=== PATIENT | male | born 1990 | race Caucasian/White ===

== ENCOUNTER 2016-08-16 17:38 | Inpatient (IN) | payer BC, OTHER ==
[~2016-08-16] VITALS: Ht 182.9 cm; Wt 71.7 kg
[~2016-08-16 17:38] MED LIST: DIPH50CA37 PO; GUAI1TBM14 PO; Gabapentin PO; HYDR-3895 PO; Ibuprofen PO; METH-33 PO; MINO100T PO; NICO1PAT11 TD
--- NOTE | 2016-08-17 18:46 | NUR ---
Intake Assessment; Patient is a 26 year old male, presented to [facility] to detoxify from Heroin, Methamphetamine and Xanax. Patient appears mildly intoxicated, patient admitted that he took substances prior to admission. Admitting vital signs are as follows; BP 111/67, HR 76, temperature 97.7, respirations of 18, Spo2 of 100% on room air denies pain at this time. Patient is awake, alert, oriented to name, place, time and situation, face appears flushed, patient is cooperative. Patient did not bring any home medications. Educated patient regarding unit protocols and policies, patient verbalized understanding. Patient to be evaluated by MD. Endorsement to be given to night nurse.
[2016-08-17] MEDS ORDERED: IBUPROFEN 400 MG TABLET PO PRN (19:45)
[2016-08-17] MEDS ORDERED: BUPRENORPHINE HCL 2 MG TAB.SUBL SL PRN (19:45)
[2016-08-17] MEDS ORDERED: ONDANSETRON 4 MG/2 ML VIAL IM PRN (19:45)
[2016-08-17] MEDS ORDERED: CLONIDINE HCL 0.1 MG TABLET PO PRN (19:45)
[2016-08-17] MEDS ORDERED: ONDANSETRON ODT 4 MG TAB.RAPDIS SL PRN (19:45)
[2016-08-17] MEDS ORDERED: MAG HYDROX/AL HYDROX/SIMETH 30 ML LIQUID UDC PO PRN (19:45)
[2016-08-17] MEDS ORDERED: LORAZEPAM 2 MG/1 ML VIAL IM PRN (19:45)
[2016-08-17] MEDS ORDERED: diphenhydrAMINE 50 MG CAPSULE PO PRN (19:45)
[2016-08-17] MEDS ORDERED: DIAZEPAM 10 MG TABLET PO PRN ×2 (19:45)
[2016-08-17] MEDS ORDERED: MIRALAX 17 GM POWD.PACK PO PRN (19:45)
[2016-08-17] MEDS ORDERED: LOPERAMIDE HCL 2 MG CAPSULE PO PRN ×2 (19:45)
[2016-08-17] MEDS ORDERED: ACETAMINOPHEN 325 MG TABLET PO PRN (19:45)
[2016-08-17] MEDS ORDERED: DIAZEPAM 5 MG TABLET PO PRN (19:45)
[2016-08-17] MEDS ORDERED: MAGNESIUM HYDROXIDE 30 ML LIQUID UDC PO PRN (19:45)
[2016-08-17 20:00] VITALS: BP 112/65
--- NOTE | 2016-08-17 20:00 | NUR ---
ADMISSION NOTE : Pt is 26 year old male, admitted to [facility] 0n 08/17/2016 at 1845 for medically supervised withdrawal from Heroine, Meth and Benzodiazepines. Body search and skin check done , skin intact. Pt ambulatory with steady gait, A/O x4. Pt is primary source of information. Pt reports allergy to PCN, allergic reaction unknown (was told by parents about PCN allergy), wishes to be full code, on regular diet. Primary Care Provider is Dr. Duncan from [place]. Last hospitalization 2 years ago for broken tibia. The patient denies a history of withdrawal-induced seizures. Upon admission SC=873/67, HR=76, Temp=97.7 , RR=16, LuZ2=724%, Height=60, Weight= 158lbs. At the time of admission patient denies pain or any discomfort, he used Heroin, Xanax and Meth 6 hours ago. Pt denies SI/HI, cooperative. Pt reports minimal anxiety, educated on relaxation techniques and oriented to unit. COWS=2, CIWA=2. Pt denies pain or body aches. Skin intact, warm, color consistent, intact. Pupils PERRLA, 3 mm bilat. Lung sounds clear, pt denies cough or SOB. Heart rate regular, pt denies chest pain, no murmurs noted. No edema noted. Cap refill <3 sec. Bowel sounds active x 4, abdomen soft, non tender, pt denies n/v, last BM 08/17/16. Pt denies problems with urination, provided urine sample for drug screen. Pt encouraged to drink and provided with PO fluids. Pt oriented to room and equipment, call light system shown with returned demonstration. SUBSTANCE ABUSE HISTORY : Heroin since 2011, current dose is 2gm IV QD since 04/2016, Last use on 08/17/2016 Meth since 2016, current dose 0,5gm IV QD since 04/2016, last use on08/17/2016 Xanax since 2006, current dose 4mg QD PO, last use on 08/17/2016 Pt. smokes 20 cigarettes daily since 2006. Tx HISTORY : Pt. has struggled with multiple attempts at sobriety, the longest being for 6 months ending in March 2016. He has been to multiple treatment programs in the past, the latest being in [facility] in 05/2016, also [facility], 4 month in pt program w/ dc to sober living, with reported beginning of May 2016. He states the cause of his relapse and frequent use have been due to negative social influencers who co-enable his use, difficulty controlling impulsivity, cravings, and treatment of negative withdrawal symptoms. He states his substance use has negatively impacted his life by "affecting everything". His main motivation to becoming sober is to improve his quality of life. He states that learning how to control impulses and cope with anxiety are barriers he will have to overcome to achieve full, long-term sobriety. Past MEDICAL History Year 2003 , VATS resection of benign thoracic mass Year 2014 , hospitalization for broken tibia. Past Family History None
[2016-08-17 20:34] LABS: BASOPHILS % (AUTO) 0.4 % (0.0-2.0); EOSINOPHILS # (AUTO) 0.8 K/uL (0.0-0.7); EOSINOPHILS % (AUTO) 11.2 % (0.0-7.0); HEMATOCRIT 40.8 % (40-50); HEMOGLOBIN 13.7 G/DL (14.0-18.0); LYMPHOCYTES # (AUTO) 1.7 K/uL (20.0-40.0); LYMPHOCYTES % (AUTO) 24.3 % (20.5-51.5); MEAN CORPUSCULAR HEMOGLOBIN 27.9 UUG (27.0-31.0); MEAN CORPUSCULAR HGB CONC 34 g/dL (32.0-37.0); MEAN CORPUSCULAR VOLUME 82.8 FL (82.0-92.0); MONOCYTES # (AUTO) 0.9 K/uL (2.0-10.0); MONOCYTES % (AUTO) 12.8 % (0.0-11.0); NEUTROPHILS # (AUTO) 3.5 K/uL (1.8-8.9); NEUTROPHILS % (AUTO) 51.3 % (38.5-71.5); PLATELET COUNT (AUTO) 323 K/UL (150-450); RED BLOOD CELL COUNT(AUTO) 4.93 MIL/UL (4.7-6.1); RED CELL DISTRIBUTION WIDTH 12.7 % (11.5-14.5); WHITE BLOOD COUNT (AUTO) 6.9 K/UL (4.0-11.2)
[2016-08-17 20:36] LABS: *AMPHETAMINE, URINE POSITIVE (NEGATIVE); *BARBITURATE, URINE NEGATIVE (NEGATIVE); *CANNABINOID, URINE NEGATIVE (NEGATIVE); *COCCAINE, URINE NEGATIVE (NEGATIVE); *OPIATE, URINE POSITIVE (NEGATIVE); *PHENCYCLIDINE SCREEN,URINE NEGATIVE (NEGATIVE)
[2016-08-17 20:55] LABS: ALANINE AMINOTRANSFERASE 30 U/L (16-63); ALBUMIN 3.5 g/dL (3.4-5.0); ALKALINE PHOSPHATASE 82 U/L (50-136); AMYLASE 57 U/L (25-115); ASPARTATE AMINOTRANSFERASE 19 U/L (15-37); BILIRUBIN,TOTAL 0.5 mg/dL (0.2-1.0); CALCIUM 8.3 mg/dL (8.5-10.1); CARBON DIOXIDE 32 mmol/L (21-32); CHLORIDE 103 mmol/L (98-107); GFR 89 mL/min (>60); GLUCOSE 80 mg/dL (74-106); LIPASE 69 U/L (73-393); MAGNESIUM 1.7 mg/dL (1.8-2.4); POTASSIUM 3.9 mmol/L (3.5-5.1); SODIUM SERUM 139 mmol/L (136-145); TOTAL PROTEIN, SERUM 6.8 g/dL (6.4-8.2); UREA NITROGEN, BLOOD 11 mg/dL (7-18)
[2016-08-17 20:58] LABS: ETHANOL < 3 MG/DL (0-0)
[2016-08-17 21:16] LABS: HIV-1 p24 ANTIGEN NON REACTIVE (NONREACTIVE); HIV-1/2 ANTIBODY NON REACTIVE (NONREACTIVE)
[2016-08-17 21:24] LABS: THYROID STIMULATING HORMONE 0.891 mIU/mL (0.358-3.740)
[2016-08-18] VITALS (7 sets, daily range): BP systolic 106–136; BP diastolic 60–81
--- NOTE | 2016-08-18 07:00 | NUR ---
Start of Shift Endorsement received from nightshift nurse. Pt is a 26 y/o male admitted for Heroin, Meth and Xanax dependence. Pt has not been placed on a taper yet, pt will be farther evaluated by Dr. Saunders. Pt's withdrawal symptoms will be managed by PRN medications at this time. Pt is mildly withdrawing AEB CIWA 2, COWS 2 at 0400. No PRN medications were administered, Pt slept 4 hours. PT is alert and oriented x4. Pt is in STABLE condition at this time. Remains compliant with medication and diet regimen. All needs have been met, All safety measures in place per hospital policy. Bed in lowest position, side rails up x2, call-light within reach. Will continue to monitor
--- NOTE | 2016-08-18 07:30 | NUR ---
END OF SHIFT NOTE : Pt is 26 year old male, admitted to [facility] 0n 08/17/2016 at 1845 for medically supervised withdrawal from Heroine, Meth and Benzodiazepines. Body search and skin check done , skin intact. Pt ambulatory with steady gait, A/O x4. Pt is primary source of information. Pt reports allergy to PCN, allergic reaction unknown (was told by parents about PCN allergy), wishes to be full code, on regular dietPt encouraged to drink and provided with PO fluids. Pt remains compliant with the treatment plan. No PRNs were given during my shift. V/S remain WNL. RR=16, even and unlabored, lungs clear upon auscultation, abdomen soft and non- distended. Pt denies nausea, vomiting and diarrhea. LAST CIWA=2 ,COWS=2 at 0400 , INTAKE= 1150 ml, voided x 2, slept 7 hours. Safety measures in place : bed on lowest position with side rails x2 up for safety, call light within reach. Will continue to monitor closely and offer help.
[2016-08-18] MEDS ORDERED: TUBERCULIN,PURIF.PROT.DERIV. 5 TU/0.1 ML TEST ID ONE ×2 (09:00→11:00)
[2016-08-18] MEDS: MULTIVITAMINS,THERAPEUTIC TABLET PO SCH (09:00)
[2016-08-18] MEDS ORDERED: MAGNESIUM OXIDE 400 MG TABLET PO ONE ×2 (09:00→11:00)
[2016-08-18] MEDS ORDERED: LORAZEPAM 1 MG TABLET PO PRN ×2 (10:30)
[2016-08-18] MEDS: GABAPENTIN 300 MG CAPSULE PO SCH ×2 (14:57→21:01)
[2016-08-18] MEDS ORDERED: Medication Not On Formulary EA ([Gabapentin] (Neurontin) 300 MG) PO SCH (15:00)
--- NOTE | 2016-08-18 17:42 | NUR ---
PRN Subutex Administered PRN Subutex 4mg for COWS 13 per protocol
--- NOTE | 2016-08-18 18:05 | NUR ---
Medication Re-assessment Subutex was partially effective. Current COWS 10 and pt reports to be comfortable
--- NOTE | 2016-08-18 19:30 | NUR ---
START OF SHIFT NOTE : Pt is 26 year old male, admitted to [facility] 0n 08/17/2016 at 1845 for medically supervised withdrawal from Heroine, Meth and Benzodiazepines. Body search and skin check done , skin intact. Pt ambulatory with steady gait, A/O x4. Pt reports allergy to PCN, , wishes to be full code, on regular diet. Pt encouraged to drink and provided with PO fluids. Pt remains compliant with the treatment plan. V/S remain WNL. RR=16, even and unlabored, lungs clear upon auscultation, abdomen soft and non- distended. Pt denies nausea, vomiting and diarrhea. Current CIWA=3 ,COWS=5. Safety measures in place : bed on lowest position with side rails x2 up for safety, call light within reach. Will continue to monitor closely and offer help.
--- NOTE | 2016-08-18 19:42 | NUR ---
End of Shift Endorsement given to nightshift nurse. Pt is a 26 y/o male admitted for Heroin, Meth and Xanax dependence. Pt has been placed on a 5 day Ativan and 5 day Subutex taper scheduled to began on 08/19/16. Pt's withdrawal symptoms will be managed by PRN medications at this time. Pt received PRN Subutex 4mg for COWS 13 at 1742 .Pt is moderately withdrawing at this time AEB CIWA 4, COWS 10 at 1900. Pt did not participate in groups or activities. Intake: 2530, Void x3, BM x0. PT is alert and oriented x4. Pt is in STABLE condition at this time. Remains compliant with medication and diet regimen. All needs have been met, All safety measures in place per hospital policy. Bed in lowest position, side rails up x2, call-light within reach. Will continue to monitor
[2016-08-18] MEDS ORDERED: Medication Not On Formulary EA ([Gabapentin] (Neurontin) 600 MG) PO SCH (21:00)
[2016-08-19] VITALS: BP 116/69
[2016-08-19 04:00] VITALS: BP 96/53
--- NOTE | 2016-08-19 05:56 | NUR ---
PRN CLONIDINE , BENTYL , ROBAXIN, MOTRIN, VISTARIL Pt. complains of body ache 7/10, muscle spasm, flashes, increased level of anxiety . PRN CLONIDINE , BENTYL , ROBAXIN, MOTRIN, VISTARIL given as ordered. Safety measures in place : bed on lowest position with side rails x2 up for safety, call light within reach. Will continue to monitor closely and offer help.
[2016-08-19] MEDS: DICYCLOMINE HCL 20 MG TABLET PO PRN (06:21)
[2016-08-19] MEDS: METHOCARBAMOL 750 MG TABLET PO PRN ×2 (06:21→22:16)
[2016-08-19] MEDS: HYDROXYZINE PAMOATE 25 MG CAPSULE PO PRN (06:21)
[2016-08-19] MEDS: IBUPROFEN 400 MG TABLET PO PRN (06:22)
--- NOTE | 2016-08-19 06:30 | NUR ---
REASSESSMENT CLONIDINE , BENTYL , ROBAXIN, MOTRIN, VISTARIL Pt. feels better , states decreased level of anxiety and decreased level of muscle spasm. Safety measures in place : bed on lowest position with side rails x2 up for safety, call light within reach. Will continue to monitor closely and offer help.
--- NOTE | 2016-08-19 07:24 | NUR ---
END OF SHIFT NOTE : Pt is 26 year old male, admitted to [facility] 0n 08/17/2016 at 1845 for medically supervised withdrawal from Heroine, Meth and Benzodiazepines. Body search and skin check done , skin intact. Pt ambulatory with steady gait, A/O x4. Pt reports allergy to PCN, , wishes to be full code, on regular diet. Pt encouraged to drink and provided with PO fluids. Pt remains compliant with the treatment plan. V/S remain WNL. RR=16, even and unlabored, lungs clear upon auscultation, abdomen soft and non- distended. Pt remains compliant with the treatment plan. PRN BENTYL, CATAPRESS, ROBAXIN, VISTARIL, MOTRIN were given during my shift. V/S remain WNL. RR=16, even and unlabored, lungs clear upon auscultation, abdomen soft and non- distended. Pt denies nausea, vomiting and diarrhea. LAST CIWA=2 ,COWS=3 at 0400 , LAFXYL=5544 ml, voided x 2, slept 4 hours.
[2016-08-19 08:00] VITALS: BP 105/66
--- NOTE | 2016-08-19 08:00 | NUR ---
START OF SHIFT NOTE Receive report from night nurse, 19 year old female admitted for Opiate dependence. NKA, Full code regular diet on fall precautions. Pt alert and oriented to name, place. Pt cont with 4 day Subutex taper. Per endorsement pt received PRN medications effective. Last COWS-2, Slept for 6 hours. Received pt alert awake oriented x 4 in stable condition.Breathing normal no SOB noted. Respiration even and unlabored, lungs clear upon auscultation, abdomen soft and non- distended. Pt denies nausea, vomiting and diarrhea. Patient denies SI/HI. Safety measures in place. Call light kept within reach. Addendum: 08/19/16 at 1132 by LOLA LAZO LVN ERROR WRONG PT CHARTING
--- NOTE | 2016-08-19 08:10 | NUR ---
START OF SHIFT NOTE Receive report from night nurse, 26 Year old male admitted for Heroin, Meth and Xanax dependence. Pt was placed on a 5 day Ativan and 5 day Subutex taper scheduled to began on 08/19/16. Per endorsement pt received PRN medications effective. Last COWS-3, CIWA -2, Slept for 4 hours. Received pt alert awake oriented x4. Pt is mildly withdrawing.Breathing normal no SOB noted. Respiration even and unlabored, lungs clear upon auscultation, abdomen soft and non- distended. Pt denies nausea, vomiting and diarrhea. Patient denies SI/HI. Safety measures in place. Call light kept within reach. Will cont to monitor.
[2016-08-19] MEDS: GABAPENTIN 300 MG CAPSULE PO SCH ×3 (08:54→22:10)
[2016-08-19] MEDS: LORAZEPAM 1 MG TABLET PO SCH ×4 (08:54→22:10)
[2016-08-19] MEDS: BUPRENORPHINE HCL 2 MG TAB.SUBL SL SCH ×4 (08:54→22:13)
[2016-08-19] MEDS: MULTIVITAMINS,THERAPEUTIC TABLET PO SCH (08:54)
[2016-08-19] MEDS: NICOTINE 21 MG/24HR PATCH TD SCH (08:56)
--- NOTE | 2016-08-19 08:56 | NUR ---
REFUSED MED Pt refused his scheduled Nicotine patch, offered x3 risk and benefits explained. Pt still refused.
[2016-08-19] MEDS ORDERED: 5 DAY TAPER BUPRENORPHINE -SERENITY PROTOCOL SL PRN (09:00)
[2016-08-19] MEDS ORDERED: 5 DAY TAPER OF LORAZEPAM -SERENITY PROTOCOL PO PRN (09:00)
[2016-08-19 12:00] VITALS: BP 112/74
[2016-08-19 16:00] VITALS: BP 104/62
--- NOTE | 2016-08-19 19:06 | NUR ---
END OF SHIFT NOTE Gave report to night nurse, 26 Year old male admitted for Heroin, Meth and Xanax dependence. Pt cont on a 5 day Ativan and 5 day Subutex taper tolerated well. Pt did not receive any PRN medication during shift. Last CIWA-5, COWS-7. Pt attended groups and activities. Pt remained compliant with treatment and medications. Vital signs remained stable. Safety measures in place, call light within reach. Pt endorsed pt to night nurse in stable condition.
[2016-08-19 20:00] VITALS: BP 108/63
--- NOTE | 2016-08-19 20:15 | NUR ---
START OF SHIFT Received report from day shift nurse. Pt attended a group meeting and returned to his room after. He is a 26 yo male [facility] for opiate and BZD dependence. He is A&O x4 and ambulatory. NKA, full code status, and on a regular diet. He denied any PMH. On admission he admitted to using heroin IV 2 grams per day, Xanax 4mg per day, and methamphetamine 0.5grams per day. He started a 5 day Subutex taper and 5 day Ativan taper today. He reports muscle aches, nasal stuffiness, stomach cramps, goose bumps, and anxiety. His demeanor is slightly agitated. Tapers due tonight. Fall precautions in place. Bed is down with call light in reach. Addendum: 08/20/16 at 0414 by DIONI HELLER RN Pt is allergic to PCN's.
--- NOTE | 2016-08-19 22:17 | NUR ---
PRN Robaxin and Benadryl administration Pt c/o generalized body aches 5/10 and inability to sleep. PRN Robaxin and Benadryl administered.
--- NOTE | 2016-08-19 23:17 | NUR ---
PRN Robaxin and Benadryl reassessment PRN Robaxin and Benadryl effective. Pt is lying comfortably in bed resting with eyes closed. Respirations even and unlabored. Bed is down with call light in reach.
[2016-08-20] VITALS: BP 99/63
--- NOTE | 2016-08-20 04:00 | NUR ---
0400 Vitals refused. COWS and CIWA deferred Pt refused to be woken for 0400 vitals. Respirations even and unlabored. COWS and CIWA ordered Q4HWA.
--- NOTE | 2016-08-20 07:15 | NUR ---
END OF SHIFT END OF SHIFT 312 Report provided to day shift nurse. Pt is lying in bed resting. He is a 26 yo male admitted to [facility] on 08/17 for opiate and BZD dependence. He is A&O x4 and ambulatory. Allergic PCNs, full code status, and on a regular diet. He denied any PMH. On admission he admitted to using heroin IV 2 grams per day, Xanax 4mg per day, and methamphetamine 0.5grams per day. He started a 5 day Subutex taper and 5 day Ativan taper on 08/19. PRN Robaxin and Benadryl administered. Last COWS 2 and CIWA 2. He drank 1896mL and slept for 6 hours. Fall precautions in place. Bed is down with call light in reach.
--- NOTE | 2016-08-20 07:55 | NUR ---
START OF SHIFT NOTE Receive report from night nurse, 26 Year old male admitted for Heroin, Meth and Xanax dependence. Pt was placed on a 5 day Ativan and 5 day Subutex taper scheduled to began on 08/19/16. Per endorsement pt received PRN Robaxin/Benadryl medications effective. Last COWS-2, CIWA -2, Slept for 6 hours. Received pt alert awake oriented x4. Breathing normal no SOB noted. Respiration even and unlabored, lungs clear upon auscultation, abdomen soft and non- distended. Pt denies nausea, vomiting and diarrhea. Patient denies SI/HI. Safety measures in place. Call light kept within reach. Will cont to monitor.
[2016-08-20 08:00] VITALS: BP 114/65
[2016-08-20] MEDS: LORAZEPAM 1 MG TABLET PO SCH ×3 (08:45→20:37)
[2016-08-20] MEDS: BUPRENORPHINE HCL 2 MG TAB.SUBL SL SCH ×3 (08:45→20:38)
[2016-08-20] MEDS: MULTIVITAMINS,THERAPEUTIC TABLET PO SCH (08:45)
[2016-08-20] MEDS: GABAPENTIN 300 MG CAPSULE PO SCH ×3 (08:45→20:37)
[2016-08-20] MEDS: NICOTINE 21 MG/24HR PATCH TD SCH (08:46)
--- NOTE | 2016-08-20 08:46 | NUR ---
REFUSED MED Pt refused his scheduled Nicotine patch, offered x3 risk and benefits explained. Pt still refused.
[2016-08-20 12:00] VITALS: BP 118/68
[2016-08-20 16:00] VITALS: BP 115/75
--- NOTE | 2016-08-20 19:00 | NUR ---
END OF SHIFT NOTE Gave report to night nurse, 26 Year old male admitted for Heroin, Meth and Xanax dependence. Pt cont on a 5 day Ativan and 5 day Subutex taper tolerated well. Pt did not receive any PRN medication during shift. Pt attended groups and activities. Pt remained compliant with treatment and medications. Vital signs remained stable. Last COWS-4, CIWA-3. Safety measures in place, call light within reach. Pt endorsed pt to night nurse in stable condition.
--- NOTE | 2016-08-20 19:15 | NUR ---
Start of Shift Note: Patient is a 26 y/o male admitted on 08/17/16 for Opiate and Benzo dependence. Patient denies past medical history. Patient is on a regular diet with allergies to Penicillins. Full Code status. Fall precaution noted. Skin intact. Patient is on a 5-day Subutex and 5-day Ativan taper and tolerating well. Last Cows 4 Ciwa 3. No PRN medications given during day shift. Patient is stable. Patient is alert & oriented x4. No shortness of breath noted. Respiration even & unlabored. Abdomen soft & non-distended. Bowel sounds active in all four quadrants. No nausea/vomiting noted. Patient complains hot and cold sweats, anxiety, stomach cramps, 4/10 body aches and mild headache. Bilateral hand tremors felt. No hallucinations noted. Patient denies SI/HI. Safety precautions are in place. Bed locked in lowest position. Both side rails up. Call light within pts reach. Will continue to monitor.
[2016-08-20 20:00] VITALS: BP 112/67
[2016-08-20] MEDS: IBUPROFEN 400 MG TABLET PO PRN (20:37)
--- NOTE | 2016-08-20 20:37 | NUR ---
PRN Administration Patient c/o stomach cramps, 4/10 generalized body aches & mild headache. PRN Bentyl & Motrin administered as ordered. Will monitor patients and reassess.
[2016-08-20] MEDS: QUETIAPINE FUMARATE 100 MG TABLET PO SCH (20:38)
[2016-08-20] MEDS: DICYCLOMINE HCL 20 MG TABLET PO PRN (20:38)
--- NOTE | 2016-08-20 21:37 | NUR ---
PRN Reassessment Patient verbalized relief from stomach cramps and body aches. Pt denies headache at this time. Will continue to monitor.
--- NOTE | 2016-08-21 | NUR ---
Vitals/Cows/Ciwa deferred Patient refused vitals at this time. Patient asleep in bed and appears comfortable. no s/s of distress noted. Respiration even & unlabored. Safety precautions are in place. Will continue to monitor patient.
[2016-08-21 05:06] LABS: HCV AB <0.1 s/co ratio (0.0-0.9); HEPATITIS B CORE AB, IgM Negative (Negative); HEPATITIS B SURFACE AG Negative (Negative)
[2016-08-21] MEDS: HYDROXYZINE PAMOATE 25 MG CAPSULE PO PRN (06:03)
[2016-08-21] MEDS: IBUPROFEN 400 MG TABLET PO PRN (06:03)
--- NOTE | 2016-08-21 06:03 | NUR ---
PRN Administration Patient complains of anxiety & tooth pain. Patient appears anxious & with facial grimacing noted. PRN Motrin & Vistaril administered as ordered. Will monitor for effectiveness of medication. Will continue to monitor patient.
--- NOTE | 2016-08-21 07:03 | NUR ---
PRN Reassessment Patient verbalized relief from tooth pain and decreased in anxiety. Patient lying in bed at this time. No facial grimacing noted. Will continue to monitor.
--- NOTE | 2016-08-21 07:13 | NUR ---
End of Shift Note: Patient is a 26 y/o male admitted on 08/17/16 for Opiate and Benzo dependence. Patient denies past medical history. Patient is on a regular diet with allergies to Penicillins. Full Code status. Fall precaution noted. Skin intact. Patient is on a 5-day Subutex and 5-day Ativan taper and tolerating well. Last Cows 7 Ciwa 6. Pt was given PRN Motin 2x, Vistaril & Bentyl and were effective. Pt was having trouble sleeping last night and complains of night terrors. Pt only slept for a total of 5 hours. Pt is stable and vitals remains WNL. Pt consumed 1091 ml of fluids. Voided 3x with 1x bowel movement. All needs attended & met. Safety precautions are in place. Bed locked in lowest position. Both side rails up. Call light within pts reach. Will endorse pt to day shift nurse.
--- NOTE | 2016-08-21 07:39 | NUR ---
START OF SHIFT Received pt this AM with flat affect and congruent mood. Patient on 5 day Ativan/ 5 day Subutex taper. Patient reports feeling bad this morning. Will administer morning medications to help manage s/s of w/d. Patient reported night tremors last night and was able to sleep about 5 hours. Patient given PRN Motrin x3, Bentyl, and Vistaril per night nurse. Last COWS 7 CIWA 6 per night nurse. Encouraged increase in fluid intake to help facilitate detox. Encouraged attendance of groups and activities. Will provide safe and supportive environment. Will continue to monitor.
[2016-08-21 07:45] LABS: CALCIUM 8.3 mg/dL (8.5-10.1); CREATININE 1.2 mg/dL (0.6-1.3); MAGNESIUM 1.9 mg/dL (1.8-2.4); POTASSIUM 4.3 mmol/L (3.5-5.1)
[2016-08-21 08:00] VITALS: BP 109/66
[2016-08-21] MEDS: MULTIVITAMINS,THERAPEUTIC TABLET PO SCH (08:44)
[2016-08-21] MEDS: GABAPENTIN 300 MG CAPSULE PO SCH ×3 (08:44→21:25)
[2016-08-21] MEDS: LORAZEPAM 1 MG TABLET PO SCH ×4 (08:44→21:25)
[2016-08-21] MEDS: NICOTINE 21 MG/24HR PATCH TD SCH (08:45)
--- NOTE | 2016-08-21 08:47 | NUR ---
REFUSED MEDICATION Patient refused Nicotine patch. Explained benefits. Still refused
[2016-08-21] MEDS ORDERED: BUPRENORPHINE HCL 2 MG TAB.SUBL SL SCH (09:00)
[2016-08-21] MEDS ORDERED: IBUPROFEN 800 MG TABLET PO PRN (11:30)
[2016-08-21 12:00] VITALS: BP 112/62
[2016-08-21] MEDS: BUPRENORPHINE HCL 2 MG TAB.SUBL SL SCH ×2 (14:10→21:25)
--- NOTE | 2016-08-21 14:13 | NUR ---
PRN MEDS PRN Motrin given for right upper tooth ache 5/10 on pain scale. Will reassess
--- NOTE | 2016-08-21 15:45 | NUR ---
PRN REASSESSMENT Patient sleeping in bed with rr even and unlabored. Bed locked and in lowest position and call centeno in reach. Will continue to monitor
[2016-08-21 16:00] VITALS: BP 112/64
--- NOTE | 2016-08-21 18:43 | NUR ---
END OF SHIFT NOTE Patient continues on 5 day Subutex 5 day Ativan taper and tolerating well. Last COWS 7 CIWA 11 and 1600. Patient given PRN Motrin for toothache with effectiveness. Patient fatigued during shift and presents with flat affect. Patient attended some groups today. All needs have been met. Safety measures in place. Will pass shift report to night nurse.
--- NOTE | 2016-08-21 19:30 | NUR ---
START OF SHIFT NOTE : Patient is a 26 y/o male admitted on 08/17/16 for Opiate and Benzo dependence. Patient denies past medical history. Patient is on a regular diet with allergies to Penicillins. Full Code status. Fall precaution noted. Skin intact. Patient is on a 5-day Subutex and 5-day Ativan taper and tolerating well. Last Cows 4 Ciwa 3. No PRN medications given during day shift. Patient is stable. Patient is alert & oriented x4. No shortness of breath noted. Respiration even & unlabored. Abdomen soft & non-distended. Bowel sounds active in all four quadrants. No nausea/vomiting noted. Bilateral hand tremors felt. No hallucinations noted. Patient denies SI/HI. Pt. wants to leave AMA, instructor modeling Geraldo talk to him in his room. Safety precautions are in place. Bed locked in lowest position. Both side rails up. Call light within pts reach. Will continue to monitor.
[2016-08-21 20:00] VITALS: BP 119/68
[2016-08-21] MEDS: QUETIAPINE FUMARATE 100 MG TABLET PO SCH (21:25)
[2016-08-21] MEDS: FAMOTIDINE 20 MG TABLET PO SCH (21:25)
--- NOTE | 2016-08-22 06:50 | NUR ---
END OF SHIFT NOTE : Patient is a 26 y/o male admitted on 08/17/16 for Opiate and Benzo dependence. Patient denies past medical history. Patient is on a regular diet with allergies to Penicillins. Full Code status. Fall precaution noted. Skin intact. Patient is on a 5-day Subutex and 5-day Ativan taper and tolerating well. Last Cows 4 Ciwa 3. No PRN medications given during day shift. Patient is stable. Patient is alert & oriented x4. Pt remains compliant with the treatment plan. No PRNs were given during my shift. V/S remain WNL. RR=16, even and unlabored, lungs clear upon auscultation, abdomen soft and non- distended. Pt denies nausea, vomiting and diarrhea. LAST CIWA=4 ,COWS=3 at 0400 , CGNYKA=4515 ml, voided x 1, slept 10 hours. Safety measures in place : bed on lowest position with side rails x2 up for safety, call light within reach. Will continue to monitor closely and offer help.
--- NOTE | 2016-08-22 07:55 | NUR ---
START OF SHIFT Received pt this AM with flat affect and congruent mood. Pt appears depressed. Patient on 5 day Ativan/ 5 day Subutex taper. Patient reports feeling bad this morning. Will administer morning medications to help manage s/s of w/d. Patient slept 10 hours last night. No PRNs given per fast food shift lead. Last COWS 3 CIWA 4 per night nurse. Encouraged increase in fluid intake to help facilitate detox. Encouraged attendance of groups and activities. Will provide safe and supportive environment. Will continue to monitor.
[2016-08-22 08:00] VITALS: BP 101/61
[2016-08-22] MEDS: FAMOTIDINE 20 MG TABLET PO SCH (09:00)
[2016-08-22] MEDS: LORAZEPAM 1 MG TABLET PO SCH ×2 (09:00→15:00)
[2016-08-22] MEDS: MULTIVITAMINS,THERAPEUTIC TABLET PO SCH (09:00)
[2016-08-22] MEDS: NICOTINE 21 MG/24HR PATCH TD SCH (09:00)
[2016-08-22] MEDS: BUPRENORPHINE HCL 2 MG TAB.SUBL SL SCH ×2 (09:00→15:00)
[2016-08-22] MEDS: GABAPENTIN 300 MG CAPSULE PO SCH ×2 (09:00→15:00)
--- NOTE | 2016-08-22 09:16 | NUR ---
0800 COWS/CIWA DEFERRED PATIENT REFUSES TO WAKE UP. PT STATES HE WANTS TO JUST SLEEP. RR EVEN AND UNLABORED. BED LOCKED AND IN LOWEST POSITION WILL MONITOR
--- NOTE | 2016-08-22 09:57 | NUR ---
COWS 8 CIWA 11. PATIENT REFUSED ALL MEDICATIONS. VITAL SIGNS STABLE. PT REPORTS THEY ARE MAKING HIM FEEL TIRED AND DEPRESSED. EDUCATED PATIENT ON RISKS AND BENEFITS. PATIENT STILL REFUSED. NOTIFIED DR WILKINS. WILL MONITOR
[2016-08-22] MEDS ORDERED: IBUPROFEN 400 MG TABLET PO PRN (10:30)
[2016-08-22 12:00] VITALS: BP 116/65
--- NOTE | 2016-08-22 16:18 | NUR ---
AMA NOTE Pt left AMA. Patient refused to comply with treatment. Patient educated about the risks and consequences of leaving AMA, pt verbalized understanding but was fixated on leaving against medical advice. Multiple staff members including doctors, patient advocates and nurses attempted to reason with patient with no success. Vital signs have been stable during shift, skin intact. Patient denied suicidal or homicidal ideations. MD has been made aware. Pt was given a list of community resources, AMA forms have been explained and signed. All belongings have been returned to patient. Patient left AMA on 08/22/16 at 1613.
[2016-08-23] MEDS ORDERED: BUPRENORPHINE HCL 2 MG TAB.SUBL SL SCH (09:00)
[2016-08-23] MEDS ORDERED: LORAZEPAM 1 MG TABLET PO SCH (09:00)
== END 2016-08-22 16:15 | disposition left against medical advice (07) | DRG 894 ==
LOC: SRC 08-17 18:14
PROVIDERS: ADMIT Internal Medicine; ATTEND Internal Medicine
PROC: HZ2ZZZZ Detoxification Services for Substance Abuse Treatment (ICD-10-PCS; principal; 2016-08-17)
PROC: HZ41ZZZ Group Counseling for Substance Abuse Treatment, Behavioral (ICD-10-PCS; 2016-08-19)
PROC: HZ31ZZZ Individual Counseling for Substance Abuse Treatment, Behavioral (ICD-10-PCS; 2016-08-22)
DX: F11.23 Opioid dependence with withdrawal (principal); F13.230 Sedative, hypnotic or anxiolytic dependence with withdrawal, uncomplicated; Z59.0 Homelessness; F17.210 Nicotine dependence, cigarettes, uncomplicated; F15.10 Other stimulant abuse, uncomplicated; K03.81 Cracked tooth; K02.9 Dental caries, unspecified
CPT/HCPCS: 36415; 70030-TC; 71010; 80307; 80324; 80346; 80361; 83690; 83735; 84443; 85025; 86592; 86705; 86803; 87340; 87806; G6040-TC; Q0163

== ENCOUNTER 2016-11-12 12:11 | Inpatient (IN) | payer BC, OTHER ==
[~2016-11-12] VITALS: Ht 185.4 cm; Wt 81.6 kg
[~2016-11-12 12:11] MED LIST changes: -GUAI1TBM14 PO; +GUAI1TBM19 PO; -MINO100T PO; -NICO1PAT11 TD; +NICO1PAT27 TD
[2016-11-12 22:35] VITALS: BP 134/80
--- NOTE | 2016-11-12 22:35 | NUR ---
Pre-Admission Pre-admission assessment performed in the intake department of [facility]. Pt is A&O x4 and ambulatory with a steady gait. He appears mildly intoxicated and slightly fidgety. Pt is cooperative and answers all questions appropriately. Vital signs are B/P 134/80, HR 90, RR 18, O2 sat 100%, T 98.0, pain 0/10. He reports allergies to PCN. Pt states that he has been using heroin IV and methamphetamine IV. Last used tonight at 2129. Pt is stable and admission is to continue on the [facility].
[2016-11-12] MEDS ORDERED: MAGNESIUM HYDROXIDE 30 ML LIQUID UDC PO PRN (23:30)
[2016-11-12] MEDS ORDERED: LOPERAMIDE HCL 2 MG CAPSULE PO PRN ×2 (23:30)
[2016-11-12] MEDS ORDERED: HYDROXYZINE PAMOATE 25 MG CAPSULE PO PRN (23:30)
[2016-11-12] MEDS ORDERED: BUPRENORPHINE HCL 2 MG TAB.SUBL SL PRN (23:30)
[2016-11-12] MEDS ORDERED: CLONIDINE HCL 0.1 MG TABLET PO PRN (23:30)
[2016-11-12] MEDS ORDERED: MIRALAX 17 GM POWD.PACK PO PRN (23:30)
[2016-11-12] MEDS ORDERED: MAG HYDROX/AL HYDROX/SIMETH 30 ML LIQUID UDC PO PRN (23:30)
[2016-11-12] MEDS ORDERED: DICYCLOMINE HCL 20 MG TABLET PO PRN (23:30)
[2016-11-12] MEDS ORDERED: METHOCARBAMOL 750 MG TABLET PO PRN (23:30)
[2016-11-12] MEDS ORDERED: ONDANSETRON 4 MG/2 ML VIAL IM PRN (23:30)
[2016-11-12] MEDS ORDERED: ACETAMINOPHEN 325 MG TABLET PO PRN (23:30)
[2016-11-12] MEDS ORDERED: ONDANSETRON ODT 4 MG TAB.RAPDIS SL PRN (23:30)
[2016-11-12] MEDS ORDERED: diphenhydrAMINE 50 MG CAPSULE PO PRN (23:30)
[2016-11-12 23:46] LABS: *AMPHETAMINE, URINE POSITIVE (NEGATIVE); *BARBITURATE, URINE NEGATIVE (NEGATIVE); *CANNABINOID, URINE NEGATIVE (NEGATIVE); *COCCAINE, URINE NEGATIVE (NEGATIVE); *OPIATE, URINE POSITIVE (NEGATIVE); *PHENCYCLIDINE SCREEN,URINE NEGATIVE (NEGATIVE)
[2016-11-13] VITALS: BP 111/73
--- NOTE | 2016-11-13 00:07 | NUR ---
PRN Milk of Magnesia Pt reports constipation. He last had a small BM this morning but still feels the need to go. Bowel sounds present. PRN Milk of Magnesia administered.
[2016-11-13] MEDS ORDERED: MAGNESIUM HYDROXIDE 30 ML LIQUID UDC ONE (00:12)
[2016-11-13 00:29] LABS: BASOPHILS # (AUTO) 0.1 K/uL (0.0-8.0); BASOPHILS % (AUTO) 0.6 % (0.0-2.0); EOSINOPHILS # (AUTO) 1.1 K/uL (0.0-0.7); EOSINOPHILS % (AUTO) 12.1 % (0.0-7.0); HEMATOCRIT 41.7 % (40-50); HEMOGLOBIN 14.2 G/DL (14.0-18.0); LYMPHOCYTES # (AUTO) 1.9 K/UL (0.8-4.8); LYMPHOCYTES % (AUTO) 20.4 % (20.5-51.5); MEAN CORPUSCULAR HEMOGLOBIN 27.8 UUG (27.0-31.0); MEAN CORPUSCULAR HGB CONC 34 g/dL (32.0-37.0); MEAN CORPUSCULAR VOLUME 81.2 FL (82.0-92.0); MONOCYTES # (AUTO) 0.7 K/UL (0.1-1.30); MONOCYTES % (AUTO) 7.4 % (0.0-11.0); NEUTROPHILS # (AUTO) 5.3 K/UL (1.8-8.9); NEUTROPHILS % (AUTO) 59.5 % (38.5-71.5); PLATELET COUNT (AUTO) 379 K/UL (150-450); RED BLOOD CELL COUNT(AUTO) 5.13 MIL/UL (4.7-6.1); WHITE BLOOD COUNT (AUTO) 9.1 K/UL (4.0-11.2)
--- NOTE | 2016-11-13 00:30 | NUR ---
ADMISSION Pt is a 26 yo male who arrived on the [facility] at 2255 on 11/12/16 for medically supervised detox. Body check performed by FILM TOUCH UP INSPECTOR and skin check performed by the nurse. He was oriented to the unit and shown to his room. Pt is A&O x4 and ambulatory with a steady gait. He appears mildly intoxicated but is cooperative and answers all questions appropriately. Pt reports allergies to Penicillins, is full code status, and on a regular diet. Vitals intake are B/P 134/80, HR 90, RR 18, O2 sat 100%, T 98.0, pain 0/10. Pt is 6'1" and weighs 180lb. He has a PMH of genital herpes, tibia fracture, benign thorax tumor removal 2003, and anxiety. He denies seizure history. Lung sounds clear, PERRLA, brisk capillary refill, bowel sounds present, skin is warm, dry, and intact. He has track miranda on the left arm. He reports "a few broken molars" that cause him occasional pain. He last had a small BM this morning but reports feeling constipated. History of Use 1) Heroin IV 3 grams per day for the past 30 days. Last used 0.5 grams 11/12/16 at 2130. He has used heroin for 5 years. 2) Methamphetamine IV 1 gram per day for the past 30 days. Last used 0.5 grams 11/12/16 at 2130. He has used heroin for 1 year. Treatment History 1) [facility] 09/2016 for 3 weeks 2) [facility] 08/2016 3) [facility] 06/2016 for 2 months 4) [facility] 05/2016 Pt smokes 1 pack of cigarettes per day. Prior to relapsing one month ago the pt had 1 month of sobriety. His longest period of sobriety was 6 months in 2016. He decided to come to treatment today "cause I'm dying". Symptoms when he doesn't use are "skin crawls, hot and cold, runny nose, watery eyes, back pain, and knee pain". Prior to admission he was living at a sober living facility in [place]. This admission is going to be different because "I'm letting go this time". Pt does not have a primary care physician at home. COWS on admission is 2. He reports taking Seroquel 100mg HSPRN for sleep. Urine drug screen positive for opiates and amphetamines. Admission orders received. Pt educated regarding use of the call light and all questions answered. Fall precautions in place. Bed is down with call light in reach.
[2016-11-13 00:37] LABS: ALANINE AMINOTRANSFERASE 37 U/L (16-63); ALKALINE PHOSPHATASE 116 U/L (50-136); AMYLASE 40 U/L (25-115); ASPARTATE AMINOTRANSFERASE 20 U/L (15-37); BILIRUBIN,TOTAL 0.3 mg/dL (0.2-1.0); CARBON DIOXIDE 26 mmol/L (21-32); CHLORIDE 102 mmol/L (98-107); CREATININE 1.2 mg/dL (0.6-1.3); GLUCOSE 159 mg/dL (74-106); LIPASE 55 U/L (73-393); MAGNESIUM 1.8 mg/dL (1.8-2.4); POTASSIUM 3.7 mmol/L (3.5-5.1); TOTAL PROTEIN, SERUM 7.5 g/dL (6.4-8.2); UREA NITROGEN, BLOOD 14 mg/dL (7-18)
[2016-11-13 00:39] LABS: ETHANOL < 3 MG/DL (0-0)
[2016-11-13 00:47] LABS: THYROID STIMULATING HORMONE 1.273 mIU/mL (0.358-3.740)
[2016-11-13 04:00] VITALS: BP 107/60
--- NOTE | 2016-11-13 04:00 | NUR ---
COWS deferred COWS ordered Q4HWA. Pt is lying in bed resting with eyes closed. Respirations even and unlabored. Safety measures in place.
[2016-11-13] MEDS ORDERED: QUET100T PO (05:43)
--- NOTE | 2016-11-13 07:15 | NUR ---
END OF SHIFT Report provided to day shift nurse. Pt is lying in bed resting. He is a [address] [facility] on 11/12 at 2255. He is A&O and ambulatory. Pt is admitted for IV heroin 3 grams per day for the past month and IV methamphetamine 1 gram per day for the past month. Last used at 2130 prior to admission. PRN Milk of Magnesia administered. No BM reported yet. Last COWS was 2. He drank 1700mL and slept for 6 hours.
--- NOTE | 2016-11-13 07:16 | NUR ---
Start of Shift Notes: Received patient in his room. Alert and oriented x 4. Patient appears drowsy upon waking. Able to make needs known. Respirations even and unlabored. No SOB noted. Skin warm and dry to touch. Abdomen soft and non-distended with (+) BS in all 4 quadrants. No complains of N/V/D or constipation noted. Bladder non-distended. No complains of dysuria noted. Voids independently. Ambulatory ad skip with steady gait. Patient is a 26 year old male admitted for opiate and methamphetamine dependence who was placed on PRNs at this time. Has past medical hx of Herpes, Hep C, tibia fracture, benign thorax tumor removal and anxiety. Allergic to PCN. FULL CODE. Regular diet. On fall and seizure precautions. Educated patient on his current plan of care for the day and his medication regimen. Encouraged oral fluid intake and encouraged group participation to learn new skills to prevent relapse. Will continue to monitor closely.
[2016-11-13 08:00] VITALS: BP 116/82
[2016-11-13] MEDS: MULTIVITAMINS,THERAPEUTIC TABLET PO SCH (09:00)
[2016-11-13] MEDS ORDERED: TUBERCULIN,PURIF.PROT.DERIV. 5 TU/0.1 ML TEST ID ONE (09:00)
--- NOTE | 2016-11-13 09:26 | NUR ---
MVI at 0900 not adminstered: Patient is laying in bed with eyes closed. Chest movement noted. Breathing even and unlabored. RR 16, O2 sat at 99% RA. MVI and TB test not administered at this time. COWS/CIWA deferred.
--- NOTE | 2016-11-13 09:28 | NUR ---
COWS/CIWA Deferred: Patient is laying in bed with eyes closed. Chest movement noted. Breathing even and unlabored. RR 16, O2 sat at 99% RA. MVI and TB test not administered at this time. COWS/CIWA deferred. Safety measures in place. Will continue to monitor closely. Addendum: 11/13/16 at 0929 by BRUNO DURON LVN Amended: Links added.
[2016-11-13] MEDS ORDERED: NICOTINE 21 MG/24HR PATCH TD SCH (11:00)
--- NOTE | 2016-11-13 11:14 | NUR ---
MD Communication: MD Saunders informed of patient's current condition. Also informed MD of non-administration of MVI and TB test. Patient had CXR done in the unit on 08/20/2016 which shows "no acute disease." Per MD, ok not to administer TB test and MVI and no need to do another CXR.
--- NOTE | 2016-11-13 11:32 | NUR ---
Nicotine patch not administered: Patient is in bed. Laying down with eyes closed. Breathing even and unlabored. Nicotine patch not administered at this time.
[2016-11-13 12:00] VITALS: BP 130/89
[2016-11-13] MEDS ORDERED: BUPRENORPHINE HCL 2 MG TAB.SUBL SL PRN (14:00)
--- NOTE | 2016-11-13 14:32 | NUR ---
New Orders: Orders received from Dr. Saunders that patient will be starting on 5-day Subutex taper in AM.
--- NOTE | 2016-11-13 15:13 | NUR ---
Clonidine 0.1mg PO and Vistaril 50 mg PO given: Patient complained of anxiety, sweats and chills. Non-pharmacological interventions were provided with no help. Medicated patient with Clonidine 0.1mg PO and Vistaril 50 mg PO as ordered. Will monitor for effectiveness.
[2016-11-13 16:00] VITALS: BP 120/77
[2016-11-13] MEDS: GABAPENTIN 300 MG CAPSULE PO SCH ×2 (16:08→21:00)
--- NOTE | 2016-11-13 16:13 | NUR ---
Re-assessment: Per patient, PRN Clonidine, and Vistaril was effective in reducing patient's anxiety, chills and hot flashes.
[2016-11-13] MEDS ORDERED: Medication Not On Formulary EA ([Gabapentin] (Neurontin) 300 MG) PO SCH (17:00)
--- NOTE | 2016-11-13 18:56 | NUR ---
End of Shift Notes: Patient continues to be on close monitoring for his withdrawal symptoms related to opiate and methamphetamine withdrawal. VS monitored closely. No significant abnormalities noted. Withdrawal symptoms were closely monitored. Initial COWS 1, Last COWS 1. Patient does not meet criteria for Subutex administration during the shift. PRN Clonidine and Vistaril were given at 1513 due to anxiety, mild tremors, and chills and hot flashes with help after 1 hour. Compliant with care and treatment. All needs met and attended. Safety precautions in place. Will continue to monitor closely.
--- NOTE | 2016-11-13 19:50 | NUR ---
START OF SHIFT Report received from day shift nurse. Pt is lying in bed resting with eyes closed and is easily arousable. He is a 26 yo male admitted to [facility] on 11/12 for opiate and meth dependence. He is A&O and ambulatory. Allergies to PCN's, is full code status, and on a regular diet. He has a PMH of genital herpes, tibia fracture, benign thorax tumor removal in 2003, and anxiety. On admission pt reported using heroin IV 3 grams per day and meth 1 gram per day for the past month. PRN's available for the management of withdrawal symptoms. Subutex taper to start tomorrow based on s/s of withdrawal. Pt is noted with moist skin. Fall precautions in place. Bed is down with call light in reach.
[2016-11-13 20:00] VITALS: BP 99/57
[2016-11-13] MEDS ORDERED: Medication Not On Formulary EA ([Gabapentin] (Neurontin) 600 MG) PO SCH (21:00)
[2016-11-14] VITALS: BP 121/73
--- NOTE | 2016-11-14 | NUR ---
0000 COWS deferred COWS ordered Q4HWA. Pt is lying in bed resting with eyes closed. Respirations even and unlabored. Vital signs obtained. Safety measures in place.
[2016-11-14 04:00] VITALS: BP 110/72
--- NOTE | 2016-11-14 07:21 | NUR ---
END OF SHIFT Report provided to day shift nurse. Pt is lying in bed resting. He is a 26 yo male admitted to [facility] on 11/12 for opiate and meth dependence. He is A&O and ambulatory. Allergies to PCN's, is full code status, and on a regular diet. He has a PMH of genital herpes, tibia fracture, benign thorax tumor removal in 2003, and anxiety. On admission pt reported using heroin IV 3 grams per day and meth 1 gram per day for the past month. PRN's available for the management of withdrawal symptoms. Subutex taper to start today based on s/s of withdrawal. No PRN medications administered. He slept most of the shift. He woke up early in the morning. COWS was 8. PRN medications offered but he fell back to sleep. He drank 240mL and slept for 11 hours. Fall precautions in place. Bed is down with call light in reach.
--- NOTE | 2016-11-14 07:22 | NUR ---
Start of Shift Notes: Received patient in his room. Alert and oriented x 4. Patient appears drowsy upon waking. Able to make needs known. Respirations even and unlabored. No SOB noted. Skin warm and dry to touch. Abdomen soft and non-distended with (+) BS in all 4 quadrants. No complains of N/V/D or constipation noted. Bladder non-distended. No complains of dysuria noted. Voids independently. Ambulatory ad skip with steady gait. Patient is a 26 year old male admitted for opiate and methamphetamine dependence who was placed on a 5-day Subutex taper as ordered. Has past medical hx of Herpes, Hep C, tibia fracture, benign thorax tumor removal and anxiety. Allergic to PCN. FULL CODE. Regular diet. On fall and seizure precautions. Educated patient on his current plan of care for the day and his medication regimen. Encouraged oral fluid intake and encouraged group participation to learn new skills to prevent relapse. Will continue to monitor closely.
[2016-11-14 08:00] VITALS: BP 129/65
[2016-11-14] MEDS: BUPRENORPHINE HCL 2 MG TAB.SUBL SL SCH ×4 (08:58→20:53)
[2016-11-14] MEDS: MULTIVITAMINS,THERAPEUTIC TABLET PO SCH (08:58)
[2016-11-14] MEDS: GABAPENTIN 300 MG CAPSULE PO SCH ×3 (08:58→20:52)
--- NOTE | 2016-11-14 08:58 | NUR ---
Robaxin 750 mg PO given: Patient noted with complain of generalized aching of 5/10 related to his withdrawal symptoms. Medicated patient with Robaxin 750 mg PO as ordered. Will monitor for effectiveness.
[2016-11-14] MEDS ORDERED: 5 DAY TAPER BUPRENORPHINE -SERENITY PROTOCOL SL PRN (09:00)
[2016-11-14] MEDS ORDERED: BUPRENORPHINE HCL 2 MG TAB.SUBL SL ONE (09:00)
[2016-11-14] MEDS: NICOTINE 21 MG/24HR PATCH TD SCH (09:00)
--- NOTE | 2016-11-14 09:02 | NUR ---
Nicotine Patch at 0900 not administered: Patient refused Nicotine patch TD at 0900. Patient states that he will continue to smoke for today. Educated patient on smoking cessation and education on the risk and consequences but patient strongly refuses patch at this time. Will continue to monitor closely and will notify .
--- NOTE | 2016-11-14 09:58 | NUR ---
Re-assessment: Per patient, PRN Robaxin was effective in reducing generalized muscle aches and pains. PL 2/10 at this time.
--- NOTE | 2016-11-14 10:30 | NUR ---
MD Visit: Notified MD Saunders of patient's current medical condition and refusal of Nicotine patch in AM. NNO made at this time. Seen and examined by Dr. Saunders. Per MD, continue with current plan of care at this time.
[2016-11-14 12:00] VITALS: BP 109/68
[2016-11-14 13:10] LABS: HEPATITIS B SURFACE AG Negative (Negative)
--- NOTE | 2016-11-14 14:19 | NUR ---
This instructional writer encouraged the client to attend groups. Client did not respond.
[2016-11-14 16:00] VITALS: BP 114/69
--- NOTE | 2016-11-14 18:54 | NUR ---
End of Shift Notes: Patient started his 5-day Subutex taper today as ordered. No adverse reactions noted. Initiated taper today. Patients VS monitored closely q 4 hours. No significant abnormalities noted. Patients withdrawal symptoms were closely monitored. Initial COWS 10, patient presented with muscle aches and pains, sweating, chills, hot flashes, mild tremors, anxiety and restless legs. Medicated patient with Robaxin 750 mg PO at 0858 for generalized muscle aches and pains with help after 1 hour. Last COWS 5. Per patient, Subutex has been helping him with his withdrawal symptoms. Unable to participate in group and activities due to his withdrawal symptoms. Compliant with care and treatment. Safety precautions in place . All needs met and attended. Will continue to monitor closely.
--- NOTE | 2016-11-14 19:15 | NUR ---
START OF SHIFT Received 26 year old male patient admitted on 11/12/16 for Heroin and Meth dependency. Pt is full code with allergy to PCN. He reports a PMHx of genital herpes, tibia fracture, benign thorax tumor removal (2003), and anxiety. Pt reports using Heroin IV 3 grams daily for 1 month. Last dose was 0.5 gram on 11/12/16. Meth IV 1 gram daily for 1 month. Last dose was 0.5 gram on . Pt started on 5 day Subutex taper and tolerating well. Per endorsement, pt received PRN Robaxin. Pt is alert and oriented x4, breathing is even and unlabored. Safety measures in place. Will continue to monitor.
[2016-11-14 20:00] VITALS: BP 105/63
[2016-11-14] MEDS: QUETIAPINE FUMARATE 100 MG TABLET PO PRN (20:52)
--- NOTE | 2016-11-14 20:52 | NUR ---
PRN SEROQUEL Pt complains of inability to sleep. PRN Seroquel administered as ordered for sleep. Breathing is even and unlabored, safety measures in place. Will monitor effectiveness.
--- NOTE | 2016-11-14 21:52 | NUR ---
PRN SEROQUEL REASSESSMENT PRN Seroquel effective. Pt lying in bed with eyes closed noted to be asleep. Respirations 16, breathing is even and unlabored. Safety measures in place. Will continue to monitor.
--- NOTE | 2016-11-15 | NUR ---
VITALS REFUSED/COWS DEFERRED 0000 vitals refused. COWS deferred d/t pt lying in bed with eyes closed noted to be asleep. Respirations 16, breathing is even and unlabored. Safety measures in place. Will continue to monitor.
--- NOTE | 2016-11-15 04:00 | NUR ---
VITALS REFUSED/COWS DEFERRED 0400 vitals refused. COWS deferred d/t pt lying in bed with eyes closed noted to be asleep. Respirations 16, breathing is even and unlabored. Safety measures in place. Will continue to monitor.
--- NOTE | 2016-11-15 07:16 | NUR ---
END OF SHIFT Pt is a 26 year old male patient admitted on 11/12/16 for Heroin and Meth dependency. Pt is full code with allergy to PCN. He reports a PMHx of genital herpes, tibia fracture, benign thorax tumor removal (2003), and anxiety. Pt continues on 5 day Subutex taper and tolerating well. At 2051 he received PRN Seroquel. he slept a total of 8 hrs, Intake:2000mL Void:1 BM:1 COWS:6. Pt remains alert and oriented x4, breathing is even and unlabored. Safety measures in place. Endorsed to oncoming shift.
[2016-11-15 08:00] VITALS: BP 121/77
[2016-11-15] MEDS: NICOTINE 21 MG/24HR PATCH TD SCH (09:00)
[2016-11-15] MEDS: BUPRENORPHINE HCL 2 MG TAB.SUBL SL SCH ×3 (09:08→21:24)
[2016-11-15] MEDS: GABAPENTIN 300 MG CAPSULE PO SCH ×3 (09:08→21:24)
[2016-11-15] MEDS: MULTIVITAMINS,THERAPEUTIC TABLET PO SCH (09:08)
--- NOTE | 2016-11-15 09:09 | NUR ---
Nicotine Patch at 0900 not administered: Patient refused Nicotine patch TD at 0900. Patient states that he will continue to smoke. Educated patient on smoking cessation and education on the risk and consequences but patient strongly refuses patch at this time. made aware.
[2016-11-15 12:00] VITALS: BP 114/69
[2016-11-15 16:00] VITALS: BP 113/64
--- NOTE | 2016-11-15 18:51 | NUR ---
End of Shift Notes: Patient continues to be on a 5-day Subutex taper that was started on 11/14/2016. No adverse reactions noted. Patients VS monitored closely q 4 hours. No significant abnormalities noted. Patients withdrawal symptoms were closely monitored. Initial COWS 4, patient presented with sweating, chills, hot flashes, mild tremors, and anxiety. Last COWS 3. Per patient, Subutex has been helping him with his withdrawal symptoms. Unable to participate in group and activities due to his withdrawal symptoms. Compliant with care and treatment. Safety precautions in place . All needs met and attended. Will continue to monitor closely.
--- NOTE | 2016-11-15 19:15 | NUR ---
START OF SHIFT Received 26 year old male patient admitted on 11/12/16 for Heroin and Meth dependency. Pt is full code with allergy to PCN. He reports a PMHx of genital herpes, tibia fracture, benign thorax tumor removal (2003), and anxiety. Pt reports using Heroin IV 3 grams daily for 1 month. Last dose was 0.5 gram on 11/12/16. Meth IV 1 gram daily for 1 month. Last dose was 0.5 gram on . Pt started on 5 day Subutex taper started on 11/14/16 tolerating well. Per endorsement, pt did not receive or request PRN medications. Pt is alert and oriented x4, breathing is even and unlabored. Safety measures in place. Will continue to monitor.
[2016-11-15 20:00] VITALS: BP 116/65
[2016-11-15] MEDS: QUETIAPINE FUMARATE 100 MG TABLET PO PRN (21:24)
--- NOTE | 2016-11-15 21:24 | NUR ---
PRN SEROQUEL Pt complains of inability to sleep. PRN Seroquel administered as ordered. Breathing is even and unlabored, safety measures in place. Will monitor effectiveness.
--- NOTE | 2016-11-15 22:24 | NUR ---
PRN SEROQUEL REASSESSMENT PRN medication effective. Pt is lying in bed with eyes closed noted to be asleep. Respirations 16, breathing is even and unlabored, safety measures in place. Will monitor.
--- NOTE | 2016-11-16 | NUR ---
VITALS REFUSED/COWS DEFERRED 0000 vitals refused. COWS deferred d/t pt lying in bed with eyes closed noted to be asleep. Respirations 16, breathing is even and unlabored. Safety measures in place. Will monitor.
--- NOTE | 2016-11-16 07:06 | NUR ---
END OF SHIFT Pt is a 26 year old male patient admitted on 11/12/16 for Heroin and Meth dependency. Pt is full code with allergy to PCN. He reports a PMHx of genital herpes, tibia fracture, benign thorax tumor removal (2003), and anxiety. Pt continues on 5 day Subutex taper started on 11/14/16 tolerating well. He received PRN Seroquel at 2124. He slept a total of 7 hrs, Intake: 1000mL, Void: x2, BM:0, COWS:3. Pt remains alert and oriented x4, breathing is even and unlabored. Safety measures in place. Endorsed to oncoming shift.
--- NOTE | 2016-11-16 07:30 | NUR ---
Start of Shift Quality Control Tech received report on a 26 year old male admitted on 11/12/16 for Heroin and methamphetamine detoxification. Pt has an allergy to PCN and reports a PMH of gential herpes, tibia fracture, benign thorax tumor and anxiety. Pt is a full code and regular diet. PRN of Seroquel administered at 2123, per report. Pt currently on a 5 day Subutex taper, tolerating well. Last COWS of 3 per report. Pt encountered in pts room resting with eyes closed. Respiration are even and unlabored, pt with no signs of distress noted. Bed in low position, wheels locked, side rails up x2 and call light within reach. All safety measures in place per policy.
[2016-11-16 08:45] VITALS: BP 103/59
[2016-11-16] MEDS ORDERED: BUPRENORPHINE HCL 2 MG TAB.SUBL SL SCH (09:00)
[2016-11-16] MEDS: NICOTINE 21 MG/24HR PATCH TD SCH (09:00)
--- NOTE | 2016-11-16 09:00 | NUR ---
Nicotine Patch Refusal Pt states he is smoking and does not need the patch. Will continue to monitor, support and encourage according to plan of care.
[2016-11-16] MEDS: GABAPENTIN 300 MG CAPSULE PO SCH ×3 (09:37→21:53)
[2016-11-16] MEDS: MULTIVITAMINS,THERAPEUTIC TABLET PO SCH (09:37)
[2016-11-16 12:58] VITALS: BP 115/67
[2016-11-16] MEDS: BUPRENORPHINE HCL 2 MG TAB.SUBL SL SCH ×2 (15:27→21:54)
[2016-11-16 16:35] VITALS: BP 112/66
--- NOTE | 2016-11-16 19:06 | NUR ---
End of Shift [employer] Lieutenant provided report on a 26 year old male admitted on 11/12/16 for Heroin and methamphetamine detoxification, with no further comments, questions or concerns voiced. Pt has an allergy to PCN and reports a PMH of genital herpes, tibia fracture, benign thorax tumor and anxiety. Pt is a full code and regular diet. Pt currently on a 5 day Subutex taper, tolerating well. Last COWS of 4 recorded at 1600. Pt has been calm and cooperative, A/O x4 and able to make needs known. Pt has been isolative to room and self, guarded on approach, withdrawn. Bed in low position, wheels locked, side rails up x2 and call light within reach. All safety measures in place per policy.
[2016-11-16 20:00] VITALS: BP 120/67
--- NOTE | 2016-11-16 20:00 | NUR ---
START OF SHIFT NOTE RECEIVED REPORT FORM DAY SHIFT NURSE. PATIENT IS A 26 YEAR OLD MALE, ADMITTED FOR OPIATE DEPENDENCE. PATIENT IS ON 3RD DAY OF HIS 5 DAY SUBUTEX TAPER. PATIENT IS ALLERGIC TO PENICILLIN. NO SEIZURE HISTORY. PATIENTS DRUG OF CHOICE ARE HEROIN IV AND METH IV FOR A MONTH . PATIENT DID NOT REQUIRE ANY PRN MEDICATION. LAST COWS 4. ON FALL PRECAUTION. SAFETY MEASURES IN PLACE. CALL LIGHT IN REACH. WILL CONTINUE TO MONITOR.
[2016-11-16] MEDS: QUETIAPINE FUMARATE 100 MG TABLET PO PRN (22:08)
--- NOTE | 2016-11-16 22:08 | NUR ---
PRN SEROQUEL ADMINISTRATION PATIENT REQUESTS FOR SLEEP AID. PRN SEROQUEL GIVEN. WILL MONITOR FOR EFFECTIVENESS
--- NOTE | 2016-11-16 23:30 | NUR ---
PRN SEROQUEL RE-ASSESSMENT PATIENT ASLEEP AT THIS TIME. RESPIRATION EVEN AND UNLABORED. WILL CONTINUE TO MONITOR
[2016-11-17] VITALS: BP 106/54
--- NOTE | 2016-11-17 04:00 | NUR ---
COWS/VS PATIENT REFUSED TO BE WOKEN UP. COWS UNABLE TO ASSESS. RESPIRATION EVEN AND UNLABORED RR 15. NO S/S OF DISTRESS. SAFETY MEASURES IN PLACE. CALL LIGHT IN REACH. WILL CONTINUE TO MONITOR.
--- NOTE | 2016-11-17 07:14 | NUR ---
END OF SHIFT NOTE PATIENT IS A 26 YEAR OLD MALE, ADMITTED FOR OPIATE DEPENDENCE. PATIENT IS ON SUBUTEX TAPER, TOLERATED WELL. NO ADVERSE REACTION. PATIENT IS ALLERGIC TO PENICILLIN. NO SEIZURE HISTORY. PATIENTS DRUG OF CHOICE ARE HEROIN IV AND METH IV FOR A MONTH . BEGINNING OF SHIFT , PATIENT C/O ANXIETY, CHILLS, SWEATING AND RUNNY NOSE, PATIENT NOTED YAWNING. PATIENT COMPLIANT WITH MEDICATION REGIMEN AND THERAPEUTIC PLAN. PATIENT REQUESTED SLEEP AID MEDICATION. PRN SEROQUEL AT 2208 GIVEN. ON FALL PRECAUTION. SAFETY MEASURES IN PLACE. CALL LIGHT IN REACH. WILL CONTINUE TO MONITOR. SLEPT 7 HOURS. FLUID INTAKE 1,151 ML. VOIDED X 2 . BM X 1. LAST COWS 2 .
--- NOTE | 2016-11-17 08:00 | NUR ---
START OF SHIFT Rcvd endorsement from ongoing nurse, client is in room, a/o x4, he presents with anxious mood, flat affect, he reports chills/colds, fatigue, decreased appetite, abdominal spasms and restless legs. Encouraged client to increase fluid intake as tolerated to facilitate detox. Encourage client to attend group therapy for skills to maintain sobriety. Client is a 26 yo male admitted for withdrawal from opioids. Last COWS 2 @ 2400, He is on 5 day Subutex taper (day 4), tolerating well. PRN Seroquel for inability to sleep, he slept for 7 hours. Client denies a history of withdrawal-induced seizure. He is on universal precautions. Call light within reach. Side rails up x2, bed locked and in low position.
[2016-11-17 08:11] VITALS: BP 118/74
[2016-11-17] MEDS: NICOTINE 21 MG/24HR PATCH TD SCH (09:00)
[2016-11-17] MEDS: GABAPENTIN 300 MG CAPSULE PO SCH ×3 (09:23→20:34)
[2016-11-17] MEDS: MULTIVITAMINS,THERAPEUTIC TABLET PO SCH (09:23)
[2016-11-17] MEDS: BUPRENORPHINE HCL 2 MG TAB.SUBL SL SCH ×3 (09:24→20:34)
[2016-11-17 12:30] VITALS: BP 118/66
--- NOTE | 2016-11-17 12:52 | NUR ---
Therapist prompted client about group times. Client stated he will attend all groups today.
[2016-11-17] MEDS ORDERED: NICO1PAT28 TD (14:39)
[2016-11-17] MEDS ORDERED: HYDR-3895 PO (14:39)
[2016-11-17] MEDS ORDERED: DICY20TA28 PO (14:39)
[2016-11-17] MEDS ORDERED: GABA-534 PO ×2 (14:39)
[2016-11-17] MEDS ORDERED: METH-406 PO (14:39)
[2016-11-17] MEDS ORDERED: IBUP-1953 PO (14:39)
[2016-11-17 16:57] VITALS: BP 112/78
--- NOTE | 2016-11-17 19:33 | NUR ---
END OF SHIFT Client is a 26 yo male admitted for withdrawal from opioids. Client is in room, a/o x 4, he continues to present with depressed mood, flat affect, last COWS 5. Client had an uneventful day, he was compliant with 2/3 of group therapy. Adequate intake and output. Safety measures in place, call light within reach, side rails up x2, bed locked and in low position. Endorsed to incoming nurse.
--- NOTE | 2016-11-17 19:55 | NUR ---
START OF SHIFT Received report from day shift nurse. Pt is in his room watching TV. He is a 26 yo male admitted to [facility] on 11/12 for opiate dependence. He is A&O x4 and ambulatory. Allergic to PCN's, full code status, and on a regular diet. He has a PMH of genital herpes, tibia fracture, and benign thorax tumor removal, and anxiety. On admission her reported using heroin IV 3 grams per day and methamphetamine 1 gram per day. He started a 5 day subutex taper on 11/14. He reports chills, flushing, nasal stuffiness, tooth pain, and anxiety. Taper due tonight. Fall precautions in place. Bed is down with call light in reach.
[2016-11-17 20:00] VITALS: BP 123/69
[2016-11-17] MEDS: IBUPROFEN 400 MG TABLET PO PRN (20:34)
[2016-11-17] MEDS: QUETIAPINE FUMARATE 100 MG TABLET PO PRN (20:35)
--- NOTE | 2016-11-17 20:36 | NUR ---
PRN Seroquel Pt reports inability to sleep. PRN Seroquel administered.
--- NOTE | 2016-11-17 21:36 | NUR ---
PRN Seroquel reassessment PRN Seroquel effective. Pt is lying in bed resting with eyes closed. Respirations even and unlabored. Safety measures in place.
--- NOTE | 2016-11-18 | NUR ---
0000 Vitals refused/COWS deferred Pt refused to be woken for 0000 vitals. He is lying in bed resting with eyes closed. Respirations even and unlabored. COWS ordered Q4HWA. Safety measures in place.
--- NOTE | 2016-11-18 04:00 | NUR ---
0400 Vitals refused/COWS deferred Pt refused to be woken for 0400 vitals. He is lying in bed resting with eyes closed. Respirations even and unlabored. COWS ordered Q4HWA. Safety measures in place.
--- NOTE | 2016-11-18 07:19 | NUR ---
END OF SHIFT Report provided to day shift nurse. Pt lying in bed resting. He is a 26 yo male admitted to [facility] on 11/12 for opiate dependence. He is A&O and ambulatory. Allergic to PCN's, full code status, and on a regular diet. He has a PMH of genital herpes not currently active, tibia fracture, and benign thorax tumor removal, and anxiety. On admission her reported using heroin IV 3 grams per day and methamphetamine 1 gram per day. 5 day subutex taper was started on 11/14. Last COWS was 6 before medications. PRN Seroquel and Motrin administered. He drank 500mL and he slept for 10 hours. Fall precautions in place. Bed is down with call light in reach.
--- NOTE | 2016-11-18 08:00 | NUR ---
START OF SHIFT Rcvd endorsement from ongoing nurse, client is in room, a/o x4, he presents with depressed mood, flat affect, he reports fatigue, abdominal spasms and restless legs. Encouraged client to increase fluid intake as tolerated to facilitate detox. Encourage client to attend group therapy for skills to maintain sobriety. Client is a 26 yo male admitted for withdrawal from opioids. Last COWS 6 @ 2000. Last of 5 day Subutex taper, tolerating well. PRN Seroquel for inability to sleep, he slept for 10 hours. Motrin for toothache, noted effective. Client denies a history of withdrawal-induced seizure. He is on universal precautions. Call light within reach. Side rails up x2, bed locked and in low position.
[2016-11-18 08:06] VITALS: BP 114/68
[2016-11-18] MEDS ORDERED: BUPRENORPHINE HCL 2 MG TAB.SUBL SL SCH (09:00)
[2016-11-18] MEDS: NICOTINE 21 MG/24HR PATCH TD SCH (09:00)
[2016-11-18] MEDS: GABAPENTIN 300 MG CAPSULE PO SCH ×3 (09:09→20:55)
[2016-11-18] MEDS: IBUPROFEN 400 MG TABLET PO PRN (09:09)
[2016-11-18] MEDS: MULTIVITAMINS,THERAPEUTIC TABLET PO SCH (09:09)
--- NOTE | 2016-11-18 09:09 | NUR ---
PRN Motrin 400mg Client complains of R upper toothache /, Motrin 400mg PO administered. Call light within reach.
--- NOTE | 2016-11-18 10:09 | NUR ---
Reassessment PRN Motrin 400mg Client reports relief of R upper toothache 2/10, but tolerable, no swelling noted. Call light within reach.
[2016-11-18 12:55] VITALS: BP 109/65
[2016-11-18 15:11] LABS: *AMPHETAMINE, URINE NEGATIVE (NEGATIVE); *BARBITURATE, URINE NEGATIVE (NEGATIVE); *CANNABINOID, URINE NEGATIVE (NEGATIVE); *COCCAINE, URINE NEGATIVE (NEGATIVE); *OPIATE, URINE NEGATIVE (NEGATIVE); *PHENCYCLIDINE SCREEN,URINE NEGATIVE (NEGATIVE)
[2016-11-18 16:58] VITALS: BP 117/67
--- NOTE | 2016-11-18 19:05 | NUR ---
END OF SHIFT Client is a 26 yo male admitted for withdrawal from opioids. Client completed 5 day Subutex taper, tolerated well, last COWS 3. He is scheduled for discharge tomorrow, urine drug test result on file. PRN Motrin 400mg for toothache, noted effective. Client is in room, a/o x 4, he continues to present with depressed mood, flat affect. Client was compliant with 2/3 of group therapy. Adequate intake and output. Safety measures in place, call light within reach, side rails up x2, bed locked and in low position. Endorsed to incoming nurse.
[2016-11-18 20:00] VITALS: BP 120/73
--- NOTE | 2016-11-18 20:00 | NUR ---
START OF SHIFT NOTE Pt is a 26 y/o male admitted for Heroin and Meth dependence and use. Pt has an allergy to PCN and reported a PMH of Herpes type 2, tibia fracture, benign thorax tumor removal (2003), and anxiety. Per day shift nurse pt completed a 5 day Subutex taper and is scheduled for discharge tomorrow. UA results filed appropriately in the pt's chart. Pt received Motrin 400 mg PO PRN during the day shift for a c/o tooth pain. Last COW: 3 (1600). At this time pt is in his room watching television. Pt's skin is dry and intact with no tremors noted. PERRLA noted. Pt denies any pain/discomfort at this time. Pt was encouraged to notify staff of any changes in condition or of any further concerns. Pt verbalized an understanding. All safety measures in place. Will continue to monitor.
[2016-11-18] MEDS: QUETIAPINE FUMARATE 100 MG TABLET PO PRN (21:54)
--- NOTE | 2016-11-18 21:54 | NUR ---
SEROQUEL PRN ADMINISTRATION Pt reported having trouble sleeping. Seroquel 100 mg PO PRN was given. Pt was encouraged to notify staff of any changes in condition or of any concerns. Pt verbalized an understanding. All safety measures in place. Will monitor for effectiveness.
--- NOTE | 2016-11-18 22:54 | NUR ---
SEROQUEL PRN REASSESSMENT Pt is asleep in bed with no signs of discomfort/distress noted. PRN effective. All safety measures in place. Will continue to monitor.
--- NOTE | 2016-11-19 | NUR ---
VITALS REFUSED/ COW DEFERRED Pt refused to have vitals taken at this time. Pt was encouraged x 3 with risks and benefits explained, but the pt still declined. COW assessment deferred until patient is awake. All safety measures in place. Will continue to monitor. Addendum: 11/19/16 at 0252 by YA BARBOSA LVN Amended: Links added.
--- NOTE | 2016-11-19 04:00 | NUR ---
VITALS REFUSED/ COW DEFERRED Pt refused to have vitals taken at this time. Pt was encouraged x 3 with risks and benefits explained, but the pt still declined. COW assessment deferred until patient is awake. All safety measures in place. Will continue to monitor. Addendum: 11/19/16 at 0545 by YA BARBOSA LVN Amended: Links added.
--- NOTE | 2016-11-19 06:55 | NUR ---
END OF SHIFT NOTE Pt is a 26 y/o male admitted for Heroin and Meth dependence and use. Pt has an allergy to PCN and reported a PMH of Herpes type 2, tibia fracture, benign thorax tumor removal (2003), and anxiety. Pt completed a 5 day Subutex taper and is scheduled for discharge today. Pt received Seroquel 100 mg PO PRN for c/o insomnia. Last COW: 1 (1999). Pt slept for a total of 8 hours. All safety measures in place. Will endorse to the oncoming nurse.
--- NOTE | 2016-11-19 07:36 | NUR ---
START OF SHIFT Received report from night nurse. 26 year old male patient admitted on 11/12/16 for heroin and meth dependence. Pt reports allergies to Penicillins, follows a regular diet and requests to be full code. Pt has completed ordered 5 day Subutex taper and is medically cleared for discharge. No acute s/s of withdrawal noted throughout night. COWS 1 at 2000. V/S remain WNL. Pt received PRN Seroquel and slept for 8 hours. All needs met at this time. Will continue to monitor.
[2016-11-19] MEDS: GABAPENTIN 300 MG CAPSULE PO SCH (08:57)
[2016-11-19] MEDS: MULTIVITAMINS,THERAPEUTIC TABLET PO SCH (08:57)
[2016-11-19] MEDS: NICOTINE 21 MG/24HR PATCH TD SCH (09:00)
[2016-11-19 09:13] VITALS: BP 108/66
--- NOTE | 2016-11-19 09:37 | NUR ---
D/C NOTE Pt is A/O x4. V/S remain WNL. Pt denies SI/HI or hallucinations. Pt shows no s/s of acute withdrawal at this time, and is stable. has medically cleared pt for d/c . Education on Hepatitis C, smoking cessation and medication side effects provided. Pt verbalizes understanding. All pt belongings are in belonging bag, including prescriptions, pt did not have any home medications. Refuses PNU vaccination. Pt is being accompanied by [employer] at this time to be transported to rehab. All needs met.
== END 2016-11-19 09:37 | disposition other institution (70) | DRG 895 ==
LOC: SRC 22:24
PROVIDERS: ADMIT Internal Medicine; ATTEND Internal Medicine
PROC: HZ2ZZZZ Detoxification Services for Substance Abuse Treatment (ICD-10-PCS; principal; 2016-11-12)
PROC: HZ41ZZZ Group Counseling for Substance Abuse Treatment, Behavioral (ICD-10-PCS; 2016-11-15)
DX: F11.23 Opioid dependence with withdrawal (principal); F17.210 Nicotine dependence, cigarettes, uncomplicated; Z59.1 Inadequate housing; F15.23 Other stimulant dependence with withdrawal; G47.00 Insomnia, unspecified; F13.21 Sedative, hypnotic or anxiolytic dependence, in remission; Z79.899 Other long term (current) drug therapy
CPT/HCPCS: 36415; 70030-TC; 80307; 80324; 80361; 83690; 83735; 84443; 85025; 86592; 86705; 86803; 87340; 87806; A4663; G0480

== ENCOUNTER 2017-01-04 08:24 | Inpatient (IN) | payer BC, OTHER ==
[~2017-01-04] VITALS: Ht 185.4 cm; Wt 81.6 kg
[~2017-01-04 08:24] MED LIST changes: +DICY20TA28 PO; -DIPH50CA37 PO; +GABA-534 PO; -GUAI1TBM19 PO; -Gabapentin PO; +IBUP-1953 PO; -Ibuprofen PO; -METH-33 PO; +METH-406 PO; -NICO1PAT27 TD; +NICO1PAT28 TD; +QUET100T PO
--- NOTE | 2017-01-04 16:00 | NUR ---
PRE-ASSESSMENT: Pre-Assessment done at intake office, client is A/O x4, he presents with flat affect, depresses mood, skin warm to touch, pinpoint pupils noted. T 98, RR 18, BP 113/66, HR 68, spO2 @ 99% on RA, Pain 0/10. He is fully ambulatory. He reports allergy to Penicillin; he denies any withdrawal-induced seizure. PMH: acne. Client educated on vital signs, blood drawn, and urine drug screen, he verbalized understanding. Client give verbal consent for HIV test and Pneumonia vaccine. Client did not bring any home medications, but reports taking, Seroquel 100mg HS PO Substance history Klonopin 6mg PO daily for the past 3 weeks, last used noon before admission 4mg Heroin 3gm IV daily for the past 42 days, last used before admission 0.5gm longest period of sobriety 4 months. Methamphetamine salts which he first used Mar 2016, he is using 1g IV daily x 42 days, last used 01/03/17.
[2017-01-04 16:15] VITALS: BP 113/66
--- NOTE | 2017-01-04 16:15 | NUR ---
Admissions Note 26 year old male admitted to [facility] for withdrawal from benzodiazepine and heroin. Client reports PMH Acne, Chronic tobacco use. Client is oriented to unit, educated about protocols and how to work TV and call light in his room. Weight: 180 pounds. Height: 6'1" Client skin intact with well healed scattered scars @ back side d/t acne, Bilateral forearms with well healed track miranda. Bilateral lung clear on auscultation, abdomen soft, non-tender, bilateral foot non-pitting edema noted, encourage client to rest and elevate bilateral foot as tolerated. Clients voice is soft, he avoids eye contact. Client reports allergy to penicillin. Regular diet ordered. Full code status ordered. Client denies any history of seizures. LBM was 01/03/17, small/brown/formed. Client PCP Modesto Delarosa Client states that he lives with his girlfriend at a hotel at this time. He reports prior treatments here at [facility], last been from November 12 to November 19, 2016 after that he went into treatment to [facility], but after the third day he left and relapse. His longest period of sobriety is for the last four months from Dec to Mar 2016. Dr Jovel notified of admission. Urine was collected upon admission. All safety measures instituted. [place] and seizure precaution. Call light within reach. Will continue to monitor.
[2017-01-04 16:58] LABS: *AMPHETAMINE, URINE POSITIVE (NEGATIVE); *BARBITURATE, URINE NEGATIVE (NEGATIVE); *CANNABINOID, URINE NEGATIVE (NEGATIVE); *COCCAINE, URINE NEGATIVE (NEGATIVE); *OPIATE, URINE POSITIVE (NEGATIVE); *PHENCYCLIDINE SCREEN,URINE NEGATIVE (NEGATIVE)
[2017-01-04] MEDS ORDERED: CLON0.1T PO (17:19)
[2017-01-04] MEDS ORDERED: THIA100T74 PO (17:19)
--- NOTE | 2017-01-04 18:41 | NUR ---
END OF SHIFT Client is in bed, sound asleep, RR 16, even, non-labored. Adequate PO intake 800mL, void x 1, stool x 1. Call light within reach.
--- NOTE | 2017-01-04 19:08 | NUR ---
Start of shift note Received report from day shift nurse. Pt is a 26 yo male, A+Ox4, presenting to [facility] for Benzo/Opiate/Meth dependence. Pt has Allergies to PCN, is on Full Code status, and on Regular diet. Pt is on Fall and Seizure precautions. Pt has HX of Genital Herpes. Pt is on 5 day Ativan and 5 day Subutex tapers, tolerated well. No s/s of distress noted at this time. Respirations even and unlabored. Will continue to monitor.
[2017-01-04 20:00] VITALS: BP 98/59
[2017-01-04 21:07] LABS: BASOPHILS % (AUTO) 0.6 % (0.0-2.0); EOSINOPHILS # (AUTO) 0.7 K/uL (0.0-0.7); EOSINOPHILS % (AUTO) 10.4 % (0.0-7.0); HEMATOCRIT 35.9 % (40-50); LYMPHOCYTES # (AUTO) 2.5 K/UL (0.8-4.8); LYMPHOCYTES % (AUTO) 39.1 % (20.5-51.5); MEAN CORPUSCULAR HEMOGLOBIN 27.6 UUG (27.0-31.0); MEAN CORPUSCULAR HGB CONC 34 g/dL (32.0-37.0); MEAN CORPUSCULAR VOLUME 82.1 FL (82.0-92.0); MONOCYTES # (AUTO) 0.6 K/UL (0.1-1.30); MONOCYTES % (AUTO) 9.2 % (0.0-11.0); NEUTROPHILS # (AUTO) 2.5 K/UL (1.8-8.9); NEUTROPHILS % (AUTO) 40.7 % (38.5-71.5); PLATELET COUNT (AUTO) 288 K/UL (150-450); RED BLOOD CELL COUNT(AUTO) 4.37 MIL/UL (4.7-6.1); WHITE BLOOD COUNT (AUTO) 6.3 K/UL (4.0-11.2)
[2017-01-04 21:20] LABS: ALANINE AMINOTRANSFERASE 29 U/L (16-63); ALKALINE PHOSPHATASE 93 U/L (50-136); ASPARTATE AMINOTRANSFERASE 21 U/L (15-37); BILIRUBIN,TOTAL 0.3 mg/dL (0.2-1.0); CARBON DIOXIDE 35 mmol/L (21-32); CHLORIDE 101 mmol/L (98-107); GLUCOSE 88 mg/dL (74-106); MAGNESIUM 1.9 mg/dL (1.8-2.4); TOTAL PROTEIN, SERUM 6.8 g/dL (6.4-8.2); UREA NITROGEN, BLOOD 18 mg/dL (7-18)
[2017-01-04 21:54] LABS: ETHANOL < 3 MG/DL (0-0)
[2017-01-05 00:05] VITALS: BP 101/61
--- NOTE | 2017-01-05 00:10 | NUR ---
COWS AND CIWA DEFERRED Cows and CIWA deferred at this time, patient is asleep. Patient's breathing is even and unlabored, will continue to monitor.
[2017-01-05 04:03] VITALS: BP 102/63
--- NOTE | 2017-01-05 04:10 | NUR ---
COWS AND CIWA DEFERRED Cows and CIWA deferred at this time, patient is asleep. Patient's breathing is even and unlabored, will continue to monitor.
--- NOTE | 2017-01-05 06:49 | NUR ---
End of shift note Pt is a 26 yo male, A+Ox4, presenting to [facility] for Benzo/Opiate/Meth dependence. Pt has Allergies to PCN, is on Full Code status, and on Regular diet. Pt is on Fall and Seizure precautions. Pt has HX of Genital Herpes. Pt is on 5 day Ativan and 5 day Subutex tapers, tolerated well. Pt slept for a total of 11 HRS. Last CIWA: 1 and Last COWS: 1 @1999. No s/s of distress noted at this time. Respirations even and unlabored. Will endorse to day shift nurse.
--- NOTE | 2017-01-05 07:31 | NUR ---
START OF SHIFT NOTE: Received report from night assistant nurse. Pt is a 26 yo male admitted 01-04-17 for Benzo/Opiate/Meth dependence. Pt is on a 5 day Ativan taper and a 5 day Subutex taper. Tolerating well. Pt is alert and oriented X4. Color good, skin warm and dry. Respirations even and unlabored. Resting in bed. Safety precautions observed. Call light within reach. Will continue to monitor.
[2017-01-05 08:27] VITALS: BP 102/63
--- NOTE | 2017-01-05 09:00 | NUR ---
VSS COWS 9 c/o muscle aches, sweating and anxiety
[2017-01-05 12:00] VITALS: BP 126/72
--- NOTE | 2017-01-05 13:00 | NUR ---
Pt sleeping (snoring) at this time.
--- NOTE | 2017-01-05 14:00 | NUR ---
1300 meds held due to pt sleeping and hard to wake up
[2017-01-05 16:09] VITALS: BP 126/72
--- NOTE | 2017-01-05 19:09 | NUR ---
END OF SHIFT NOTE: Report given to laboratory chemical assistant nurse. Pt is a 26 yo male admitted 01-04-17 for Benzo/Opiate/Meth dependence. Pt is on a 5 day Ativan taper and a 5 day Subutex taper. Tolerating well. Pt is alert and oriented X4. Color good, skin warm and dry. Respirations even and unlabored. 1300 meds held due to pt sleeping. Vital signs have remained stable throughout shift. Last COWS 6 CIWA 6 @ 1700. No prns given. Safety precautions observed. Call light within reach.
--- NOTE | 2017-01-05 19:30 | NUR ---
START OF SHIFT Pt is a 26 yo male admitted 01-04-17 for Benzo/Opiate/Meth dependence. Pt is on a 5 day Ativan taper and a 5 day Subutex taper. Tolerating well. Pt received resting in bed with eyes closed,arousable on approach.Pt is alert and oriented X4. Color good, skin warm and dry. Respirations even and unlabored.Per report, 1300 meds were held due to pt sleeping. Vital signs have remained stable throughout shift. Last COWS 6 CIWA 6 @ 1700. No prns were given during the day. Safety precautions observed, bed kept in low position and locked with side rails up. Call light is within reach,will continue to monitor.
[2017-01-05 20:00] VITALS: BP 110/60
--- NOTE | 2017-01-06 | NUR ---
PT REFUSED V/S;HE IS IN DEEP SLEEP,BREATHING IS EVEN AND NON LABORED,NO S/S OF DISTRESS NOTED.UNABLE TO ASSESS PT FOR COWS/CIWA DUE TO BEING ASLEEP.WILL CONTINUE TO MONITOR.
[2017-01-06 04:00] VITALS: BP 99/53
--- NOTE | 2017-01-06 06:40 | NUR ---
END OF SHIFT Pt is a 26 yo male admitted 01-04-17 for Benzo/Opiate/Meth dependence. Pt is on a 5 day Ativan taper and a 5 day Subutex taper. Tolerating well.Pt is alert and oriented X4. Last COWS 3 CIWA 3 @ 0400. No prns were given during the shift. Pt slept 10 hrs,fluid intake was 1350 mls,voided x 1. Safety precautions observed, bed kept in low position and locked with side rails up. Call light is within reach,will continue to monitor.
--- NOTE | 2017-01-06 07:30 | NUR ---
Start of shift note; Received report from night nurse. Patient is a 26 year old male admitted on 01/04/17 for Benzo/ Opiate dependence. Patient was placed on a 5 day Ativan and 5 day Subutex taper. Patient reported allergies to Penicillin, on regular diet and on full code status. Patient slept for 10 hours. Patient is on fall and seizure precautions. Bed in lowest position, call light within reach. will continue to monitor patient.
[2017-01-06 08:00] VITALS: BP 95/68
[2017-01-06 12:00] VITALS: BP 112/67
[2017-01-06 12:06] LABS: HEPATITIS B SURFACE AG Negative (Negative)
[2017-01-06 16:00] VITALS: BP 110/57
--- NOTE | 2017-01-06 18:25 | NUR ---
End of shift note; Patient is AOX4. Patient is a 26 year old male admitted on 01/04/17 for Benzo/ Opiate dependence. Patient was placed on a 5 day Ativan and 5 day Subutex taper. Patient reported allergies to Penicillin, on regular diet and on full code status. Patient remained compliant with treatment plan and medication regime. Medications were effective in reducing withdrawal symptoms. Patient participated in group activities and therapies. Met all needs.
--- NOTE | 2017-01-06 19:30 | NUR ---
START OF SHIFT Pt is a 26 yo male admitted 01-04-17 for Benzo/Opiate/Meth dependence. Pt is on a 5 day Ativan taper and a 5 day Subutex taper. Tolerating well.Allergic to PCN,on regular diet,full code status. Pt received resting in bed with eyes closed,arousable on approach.Pt is alert and oriented X4. Color good, skin warm and dry. Respirations even and unlabored,no s/s of acute distress noted. Last COWS 5 CIWA 4 @ 1700. No prns were given during the day. Safety precautions observed, bed kept in low position and locked with side rails up. Call light is within reach,will continue to monitor.
[2017-01-06 20:00] VITALS: BP 110/60
--- NOTE | 2017-01-06 22:24 | NUR ---
PRN MED PRN SEROQUEL GIVEN ORDERED FOR C/O INSOMNIA PER PT REQUEST.WILL MONITOR FOR EFFECTIVENESS.
--- NOTE | 2017-01-06 23:25 | NUR ---
PRN EFFECTIVE,PT IS CALM AND SLEEPING AT THIS TIME.
[2017-01-07] VITALS: BP 108/58
[2017-01-07 04:00] VITALS: BP 89/50
--- NOTE | 2017-01-07 06:39 | NUR ---
END OF SHIFT Pt is a 26 yo male admitted 01-04-17 for Benzo/Opiate/Meth dependence. Pt is on a 5 day Ativan taper and a 5 day Subutex taper. Tolerating well.Allergic to PCN,on regular diet,full code status. Pt is alert and oriented X4. Color good, skin warm and dry. Respirations even and unlabored,no s/s of acute distress noted. Last COWS 2 CIWA 2 @ 0400. PRN Seroquel was given as orderd with good effect.Pt slept 8 hrs,fluid intake was 605 mls,voided x 1.PO fluids encouraged as tolerated. Safety precautions observed, bed kept in low position and locked with side rails up. Call light is within reach,will continue to monitor
[2017-01-07 08:00] VITALS: BP 94/60
--- NOTE | 2017-01-07 08:12 | NUR ---
START OF SHIFT NOTE Received report from night nurse, 26 year old male admitted for Benzo/Opiate/Meth dependence. Pt is cont on a 5 day Ativan taper and a 5 day Subutex taper. Pt reported PMH of Genital Herpes. Per endorsement pt received PRN Seroquel and effective per night nurse, slept for 8 hours, last CIWA-2, COWS-2. Pt received in bed awake, alert and oriented x4, Skin intact warm and dry to touch. Pt educated regarding plan of care for the day with good verbal understanding. Safety measures in place, call light kept with in reach, will continue to monitor.
[2017-01-07 12:00] VITALS: BP 118/76
--- NOTE | 2017-01-07 15:50 | NUR ---
Psychosocial assessment completed today.
[2017-01-07 16:00] VITALS: BP 115/67
--- NOTE | 2017-01-07 19:10 | NUR ---
END OF SHIFT NOTE Pt cont on Subutex/Ativan taper tolerating well, and medications were effective in reducing withdrawal symptoms. last CIWA score 4, COWS-6. Pt did not receive any PRN medications during shift. Pt remained compliant with medication and treatment plan. Pt attended groups and activities. Encouraged Po fluids as tolerated. All needs attended. Pt endorsed to night nurse in stable condition.
--- NOTE | 2017-01-07 19:15 | NUR ---
START OF SHIFT Received 26 year old male patient admitted on 01/04/17 for Klonopin, Heroin and Methamphetamine dependency. Pt is full code with allergy to PCN. Pt reports a PMHX of genital herpes. He reports using Klonopin 6 mg PO daily for 3 weeks. Last dose was 4 mg on 01/04/17. Heroin IV 3 grams daily for 42 days. Last dose was 0.5 gram on 01/04/17. Methamphetamine 1 gram IV daily for 42 days. Last dose was 1 gram on 01/03/17. Pt placed on 5 day Ativan and 5 day Subutex taper and tolerating well. Per endorsement, pt did not receive or request PRN medications. Pt is alert and oriented x4, breathing is even and unlabored. Safety measures in place. Will monitor.
[2017-01-07 20:00] VITALS: BP 126/68
--- NOTE | 2017-01-07 22:23 | NUR ---
PRN SEROQUEL Pt complains of inability to sleep. PRN Seroquel administered as ordered. Safety measures in place. Will monitor effectiveness.
--- NOTE | 2017-01-07 23:23 | NUR ---
PRN SEROQUEL REASSESSMENT PRN medication effective. Pt is lying in bed with eyes closed noted to be asleep. Respirations 16, breathing is even and unlabored. Safety measures in place. Will monitor.
--- NOTE | 2017-01-08 | NUR ---
VITALS REFUSED/COWS, CIWA DEFERRED 0000 vitals refused. COWS and CIWA deferred d/t pt lying in bed with eyes closed noted to be asleep. Respirations 16, breathing is even and unlabored. Safety measures in place. Will monitor.
--- NOTE | 2017-01-08 04:00 | NUR ---
VITALS REFUSED/COWS, CIWA DEFERRED 0400 vitals refused. COWS and CIWA deferred d/t pt lying in bed with eyes closed noted to be asleep. Respirations 16, breathing is even and unlabored. Safety measures in place. Will monitor.
--- NOTE | 2017-01-08 07:05 | NUR ---
END OF SHIFT Pt is a 26 year old male patient admitted on 01/04/17 for Klonopin, Heroin and Methamphetamine dependency. Pt is full code with allergy to PCN. Pt reports a PMHx of genital herpes. Pt continues on a 5 day Ativan and 5 day Subutex taper and is tolerating well. At 2223 he received PRN Seroquel. He slept a total of 7hrs, Intake: 850mL, Void: x2, BM:0, COWS:6, CIWA:4. Pt remains alert and oriented x4, breathing is even and unlabored. Safety measures in place. Endorsed to oncoming shift.
[2017-01-08 08:00] VITALS: BP 106/60
--- NOTE | 2017-01-08 08:15 | NUR ---
START OF SHIFT: RECEIVED PT A/O X 4. HE PRESENTS WITH BLUNTED AFFECT AND DEPRESSED MOOD. HE STATES HE HAS SOME BODY ACHES,ANXIETY,SWEATS AND STUFFY NOSE. SUBUTEX/ATIVAN TAPER IN PROGRESS TO MANAGE S/S OF W/D.COWS 5 CIWA 4.HE REPORTS SLEEPING WELL AND EATING OK. ENCOURAGED GROUP ATTENDANCE TO IMPROVE COPING SKILLS AND PREVENT RELAPSE. WILL CONTINUE TO MONITOR AND OFFER SUPPORT.
[2017-01-08 12:00] VITALS: BP 117/63
--- NOTE | 2017-01-08 13:48 | NUR ---
DISCHARGE AMA: PT INSISTED ON LEAVING WITHOUT COMPLETING DETOX. MULTIDISCIPLINARY TEAM INTERVENED WITHOUT SUCCESS. BELONGINGS RETURNED. RESOURCE LIST GIVEN TO PATIENT. HE DENIES S/I AND H/I. PT WAS ESCORTED OUT OF FACILITY BY LADLE MECHANIC AT 1338.
== END 2017-01-08 13:38 | disposition left against medical advice (07) | DRG 894 ==
LOC: SRC 15:39
PROVIDERS: ADMIT Internal Medicine; ATTEND Internal Medicine
PROC: HZ2ZZZZ Detoxification Services for Substance Abuse Treatment (ICD-10-PCS; principal; 2017-01-04)
PROC: HZ31ZZZ Individual Counseling for Substance Abuse Treatment, Behavioral (ICD-10-PCS; 2017-01-07)
DX: F11.23 Opioid dependence with withdrawal (principal); E87.3 Alkalosis; F13.230 Sedative, hypnotic or anxiolytic dependence with withdrawal, uncomplicated; F17.210 Nicotine dependence, cigarettes, uncomplicated; E86.0 Dehydration; F41.9 Anxiety disorder, unspecified; Z59.0 Homelessness; F15.23 Other stimulant dependence with withdrawal; Z59.1 Inadequate housing; D64.9 Anemia, unspecified
CPT/HCPCS: 36415; 80307; 80324; 80361; 83735; 85025; 86580; 86592; 86705; 86803; 87340; 87806; G0480